=== PATIENT | male | born 1975 | race Asian ===

== ENCOUNTER 2017-01-10 15:08 | Emergency (ER) | payer SELFPAY ==
[~2017-01-10] VITALS: Ht 170.2 cm; Wt 77.3 kg
[~2017-01-10 15:08] MED LIST: LITH300T4 PO; RISP3TAB6 PO
[2017-01-10 17:45] VITALS: BP 122/70
[2017-01-10] MEDS ORDERED: IBUPROFEN 600 MG TABLET PO ONE (17:45)
== END 2017-01-10 18:30 | disposition home or self-care (01) ==
LOC: EMS 15:09 → EEVIPCON 15:09 → EMS 18:30
DX: S61.411A Laceration without foreign body of right hand, initial encounter (principal); S51.811A Laceration without foreign body of right forearm, initial encounter; Z88.8 Allergy status to other drugs, medicaments and biological substances; X58.XXXA Exposure to other specified factors, initial encounter; Y93.89 Activity, other specified; Y92.89 Other specified places as the place of occurrence of the external cause; Y99.8 Other external cause status
CPT/HCPCS: 99284